=== PATIENT | female | born 1955 | race Caucasian/White ===

== ENCOUNTER → 2020-07-24 08:59 | Outpatient (CLI) | payer BC, SELFPAY ==
--- NOTE | 2020-07-24 | DI.US.S_ITS ---
PROCEDURE: US PERIPH VENOUS LOW EXTREM BI INDICATIONS: EDEMA, UNSPECIFIED TECHNIQUE: Real-time imaging, as well as color and pulse Doppler interrogation, were performed of the deep veins of both legs from the inguinal ligament to the popliteal fossa. COMPARISON: None. FINDINGS: Right: The common femoral, femoral and popliteal veins are normally compressible, and free of intraluminal thrombus. Color and pulse Doppler demonstrate normal phasic intravascular flow. There is normal augmentation response to distal compression maneuver. Left: The common femoral, femoral and popliteal veins are normally compressible, and free of intraluminal thrombus. Color and pulse Doppler demonstrate normal phasic intravascular flow. There is normal augmentation response to distal compression maneuver. IMPRESSION: Negative for deep venous thrombosis. Dictated by: Bigg Kelsey M.D. on 07/24/2020 at 11:34 Approved by: Bigg Kelsey M.D. on 07/24/2020 at 11:35
--- NOTE | 2020-07-24 | DI.RAD.S_ITS ---
PROCEDURE: XR HIP W PEL IF DONE BILAT 2V INDICATIONS: RIGHT HIP PAIN TECHNIQUE: AP pelvis with lateral view(s) of the left and right hip(s). COMPARISON: None. FINDINGS: Bones: No fracture. Mild bilateral hip joint degeneration. Lower lumbar spondylosis and facet arthropathy. Soft tissues: The visualized bowel gas pattern is normal. No suspicious soft tissue calcifications. IMPRESSION: Mild bilateral hip joint degeneration. Dictated by: Anton Giraldo M.D. on 07/24/2020 at 10:56 Approved by: Anton Giraldo M.D. on 07/24/2020 at 10:57
--- NOTE | 2020-07-24 | DI.RAD.S_ITS ---
PROCEDURE: XR CHEST 2V INDICATIONS: PERIPHERAL EDEMA TECHNIQUE: 2 views of the chest were acquired. COMPARISON: [facility], , CHEST 1 VIEW, 12/06/2016, 15:05. FINDINGS: Surgical changes and devices: Surgical staple line projecting in the medial left apex. Surgical clips projecting in the left breast Lungs and pleura: Lungs are clear. No pleural effusions or pneumothorax. Mediastinum: Mediastinal contours are normal. Heart size is normal. Bones and chest wall: No suspicious bony abnormalities. Soft tissues appear unremarkable. IMPRESSION: No acute disease. Dictated by: Anton Giraldo M.D. on 07/24/2020 at 10:57 Approved by: Anton Giraldo M.D. on 07/24/2020 at 10:59
--- NOTE | 2020-07-24 | DI.ECHO.S_ITS ---
[place] +---------+ [facility] +---------+ : : [address] : : : : [id number] : : : : Phone: [phone]+ Echocardiogram Report + + :Name: JUAN CARLOS PARKINSON Study Date: 07/24/2020 Height: 70 in : :[facility] Weight: 240 lb : : Gender: Female BSA: 2.3 m2 : :: 1955 Age: 65 yrs BP: 136/78 mmHg: :Reason For Study: Dyspnea : :Ordering Physician: BETH, : :KATRINA Cartagena Performed By: Germaine Soto : :Referring: KATRINA CAMPOS : + + Interpretation Summary Normal both left and right ventricle size and function. The ejection fraction is 60-65%. Mildly dilated left atrium. No valvular abnormality. Procedure: A two-dimensional transthoracic echocardiogram with color flow and Doppler was performed. The study quality was technically adequate. There is no prior echocardiogram noted for this patient. The patient had occasional PVCs during the exam. The patient was in sinus rhythm with heart rates between 57-72 bpm during the exam. Left Ventricle: The left ventricle is normal in size and wall thickness. The ejection fraction is estimated to be 60-65%. There are no focal wall motion abnormalities. Diastolic parameters suggest probable normal left ventricular diastolic function and normal filling pressures. Right Ventricle: The right ventricle is normal in size and function. Atria: The left atrium is mildly dilated. Right atrial size is normal. There is no Doppler evidence for an interatrial shunt. Mitral Valve: The mitral valve is normal in structure and function. There is trace mitral regurgitation. Aortic Valve: The aortic valve is grossly normal. The aortic valve opens well. There is no aortic valve stenosis. No aortic regurgitation is present. Tricuspid Valve: The tricuspid valve is normal in structure and function. There is trace tricuspid regurgitation. Pulmonary artery pressures cannot be estimated because of the lack of a measurable TR jet velocity but the IVC suggests a CVP of around 3 mmHg. Pulmonic Valve: The pulmonic valve is not well seen, but is grossly normal. There is trace pulmonic regurgitation. Great Vessels: The aortic root is normal size. The dimensions of the ascending aorta are normal. The IVC is of normal diameter and collapses greater than 50% with a sniff. This suggests a low right atrial pressure of 3 mm Hg. Pericardium/ Pleura There is no pericardial effusion. There is no pleural effusion. MMode/2D Measurements & Calculations LVIDd: 5.0 cm LVOT diam: 2.2 cm LVIDs: 3.2 cm Ao root diam: 3.5 cm FS: 37.4 % asc Aorta Diam: 3.1 cm EPSS: 0.44 cm Ao Arch Diam (Prox Trans): 2.8 cm IVSd: 0.94 cm LVPWd: 0.68 cm LV valdez. diameter/BSA (cm/m^2): 2.2 LV sys. diameter/BSA (cm/m^2): 1.4 LA A2 area: 23.3 cm2 RA long axis: 6.0 cm LA A4 area: 25.4 cm2 RA area: 22.4 cm2 LA length (vol): 5.6 cm RA vol: 71.5 ml LA vol: 90.3 ml RA : 31.7 ml/m2 LA vol index: 40.0 ml/m2 IVC diam: 1.2 cm RVD1 (basal): 3.4 cm TAPSE: 2.7 cm Doppler Measurements & Calculations Ao V2 max: 111.1 cm/sec LVOT Max Damon: 102.0 cm/sec Ao V2 mean: 72.4 cm/sec LV V1 max P.2 mmHg Ao max P.9 mmHg LV V1 VTI: 23.1 cm Ao mean P.4 mmHg BONNIE(I,D): 3.6 cm2 Ao V2 VTI: 24.8 cm BONNIE(V,D): 3.6 cm2 sev ratio: 0.93 BONNIE indexed to BSA (cm^2/m^2): 1.6 MV E max damon: 99.3 cm/sec PA V2 max: 89.6 cm/sec MV A max damon: 66.1 cm/sec PA V2 mean: 55.7 cm/sec MV E/A: 1.5 PA mean P.5 mmHg Med Peak E' Damon: 8.0 cm/sec PA pr(Accel): 10.5 mmHg E/E' med: 12.4 Lat Peak E' Damon: 9.3 cm/sec E/E' lat: 10.7 E/e' average: 11.5 MV dec time: 0.22 sec SV(LVOT): 90.3 ml Electronically signed by: Joy Tavarez on Reading Physician:07/24/2020 02:52 PM
== END ==
PROVIDERS: Family Provider Family Medicine; PCP Family Medicine; Referring Provider Family Medicine; Visit Provider Family Medicine
DX: R06.00 Dyspnea, unspecified (principal); R60.9 Edema, unspecified; M25.551 Pain in right hip; M16.0 Bilateral primary osteoarthritis of hip
CPT/HCPCS: 71046; 73521; 93306; 93970

== ENCOUNTER → 2020-08-10 15:20 | Outpatient (CLI) | payer BC, SELFPAY ==
--- NOTE | 2020-08-10 17:54 | DI.NM.S_ITS ---
DATE OF SERVICE: 08/10/2020 PROCEDURE: Exercise stress test. INDICATION: Shortness of breath. EXERCISE STRESS TEST: The patient underwent exercise stress test under the supervision of an attending staff. She walked on Maciej protocol for 4 minutes and 15 seconds, felt fatigue and dizziness. Initial blood pressure 140/80. Peak blood pressure 188/60. The patient achieved 98 percent of target heart rate with maximum heart rate 154 beats per minute. Baseline rhythm was sinus. At peak exercise, there was 1-1.5 mm horizontal, as well as downsloping ST depression, in lead III and aVF, which got resolved in 2.5 minutes in the recovery. Occasional PVCs without any ventricular tachycardia. No chest discomfort. The patient achieved 7 METs of workload. CONCLUSION: Exercise stress test is mildly positive for inducible ischemia. At peak exercise, the patient developed 1-1.5 mm horizontal, as well as downsloping ST depression, in lead III and aVF, which lasted about 2.5 minutes in recovery. Occasional PVCs. Functional aerobic impairment is positive 20 percent. The patient achieved 7 METs of workload. Normal hemodynamic response. Erasmo Calabrese - MISAEL/feli/ana laura doc#: [id number]/job#: [id number] dd: 08/10/2020 17:02:00 dt: 08/10/2020 17:18:00 DICTATING MD/COPIES TO: Laverne Zepeda MD; Sidra Seals MD COPIES MNE: ORALIA;
== END ==
PROVIDERS: Family Provider Family Medicine; PCP Family Medicine; Referring Provider Internal Medicine Cardiovascular Disease; Visit Provider Internal Medicine Cardiovascular Disease
DX: R06.02 Shortness of breath (principal)
CPT/HCPCS: 93017

== ENCOUNTER → 2021-06-20 08:08 | Outpatient (CLI) | payer OTHER, SELFPAY ==
[2021-06-20 20:40] LABS: COVID19 - ORCAS (NP or Nasal) Negative (Negative)
== END ==
PROVIDERS: Family Provider Family Medicine; PCP Family Medicine; Visit Provider Physician Assistant Medical
DX: Z20.822 Contact with and (suspected) exposure to COVID-19 (principal)
CPT/HCPCS: U0003

== ENCOUNTER → 2021-06-29 08:00 | Outpatient (CLI) | payer OTHER, SELFPAY ==
[2021-06-29 18:41] LABS: Add Manual Diff / Slide Review NO; Basophils Absolute Auto 100 /uL (0-100); Basophils Percent Auto 1.3 % (0-2); Eosinophils Absolute Auto 200 /uL (0-450); Eosinophils Percent Auto 4.1 % (2-4); Hematocrit 41.2 % (36-46); Lymphocytes Absolute Auto 2000 /uL (1100-4500); Lymphocytes Percent Auto 36.2 % (25-40); Mean Corpuscular HGB Conc 34.1 % (30-36); Mean Corpuscular Hemoglobin 30.9 PG (26-34); Mean Corpuscular Volume 90.6 fL (80-100); Monocytes Absolute Auto 300 /uL (0-900); Monocytes Percent Auto 5.4 % (3-14); Neutrophils Absolute Auto 2900 /uL (1500-7000); Platelet Count 208 X10^3/uL (150-400); Red Blood Cell Count 4.55 X10^6/uL (4.0-5.2); Red Cell Distribution Width 12.4 % (11.6-14.8); White Blood Cell Count 5.4 X10^3/uL (4.5-11.0)
[2021-06-29 18:47] LABS: Iron 189 ug/dL (37-170)
[2021-06-29 18:51] LABS: Alanine Aminotransferase 23 IU/L (<35); Albumin 4.1 g/dL (3.5-5.0); Albumin Globulin Ratio 1.4 (1.0-2.8); Alkaline Phosphatase 82 U/L (38-126); Aspartate Aminotransferase 28 IU/L (14-36); BUN Creatinine Ratio 24.7 (6-22); Bilirubin Total 0.8 mg/dL (0.2-1.3); Blood Urea Nitrogen 19 mg/dL (7-17); Calcium 10.6 mg/dL (8.4-10.2); Carbon Dioxide 27 mmol/L (22-32); Chloride 105 mmol/L (98-107); Estimated Glomerular Filt Rate > 60.0 mL/min (>60); Glucose 92 mg/dL (80-110); HEMOLYSIS < 15 (0-50); Potassium 4.2 mmol/L (3.4-5.1); Sodium 139 mmol/L (137-145); Total Protein 7.1 g/dL (6.3-8.2)
[2021-06-29 18:56] LABS: Total Iron Binding Capacity 250 ug/dL (265-497)
[2021-06-29 19:04] LABS: Percent Iron Saturation 76 % (15-50)
[2021-06-29 19:24] LABS: Ferritin 83 ng/mL (11-264)
== END ==
PROVIDERS: Family Provider Family Medicine; PCP Family Medicine; Visit Provider Family Medicine
DX: R79.89 Other specified abnormal findings of blood chemistry (principal)
CPT/HCPCS: 80053; 82728; 83540; 83550; 85025

== ENCOUNTER → 2022-01-04 07:59 | Outpatient (CLI) | payer OTHER, SELFPAY ==
[2022-01-04 19:16] LABS: Iron 153 ug/dL (37-170)
[2022-01-04 19:31] LABS: Percent Iron Saturation 64 % (15-50); Total Iron Binding Capacity 240 ug/dL (265-497)
[2022-01-04 19:48] LABS: Ferritin 63 ng/mL (11-264)
== END ==
PROVIDERS: Family Provider Family Medicine; PCP Family Medicine; Visit Provider Internal Medicine Hematology
DX: R79.89 Other specified abnormal findings of blood chemistry (principal)
CPT/HCPCS: 82728; 83540; 83550

== ENCOUNTER → 2022-01-29 08:58 | Outpatient (CLI) | payer OTHER, SELFPAY ==
[2022-01-29 19:41] LABS: COVID19 - ORCAS (NP or Nasal) Negative (Negative)
== END ==
PROVIDERS: Family Provider Family Medicine; PCP Family Medicine; Visit Provider Physician Assistant
DX: Z20.822 Contact with and (suspected) exposure to COVID-19 (principal); Z01.812 Encounter for preprocedural laboratory examination
CPT/HCPCS: U0003

== ENCOUNTER 2022-01-31 09:54 | Day surgery (SDC) | payer OTHER, SELFPAY ==
[2022-01-31 10:45] VITALS: BP 109/64; PULSE 60; RESP 16; TEMP 36.9; O2SAT 98; BMI 35.4
[2022-01-31] MEDS: LACTATED RINGERS 1,000 ML 42 ML IV (11:02)
--- NOTE | 2022-01-31 11:39 | PM.HP.1 ---
History of Present Illness History of Present Illness Date Patient Seen: 01/31/22 Time Patient Seen: 11:39 Chief complaint: SDC Narrative: Erasmo is a 66-year-old woman who is about 15 years out from her last colonoscopy. She believes she had no polyps. No known family history of colon cancer. 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 Scoliosis of thoracic spine Thoracic arthritis Tobacco abuse, in remission Venous stasis Surgical History (Updated 06/29/21 @ 22:00 by Kori Gomes) Anesthesia Collapsed lung (~1978) Status post left breast lumpectomy (~2011) Family & Social History Family History (Updated 06/29/21 @ 22:02 by Kori Gomes) Grandmother Cancer Mother Cancer Diabetes mellitus Father Lung cancer Social History: household members family Tobacco & Substance use: Smoking Status Never smoker alcohol intake current alcohol intake frequency a few times a month Substance Use Type does not use Meds Home Medications and Allergies Home Medications Medication Instructions Recorded Confirmed Type cholecalciferol (vitamin D3) 125 125 mcg PO DAILY 06/27/21 01/31/22 History mcg (5,000 unit) tablet ferrous sulfate 324 mg (65 mg 324 mg PO Q OTHER DAY tab 06/27/21 01/31/22 History iron) tablet,delayed release lorazepam 2 mg tablet 2 mg PO BEDTIME PRN #30 tab 06/28/21 01/31/22 Rx sodium sul 1.479 gram-potas ch See Rx Instructions PO PER PKG DIR 12/17/21 Rx 0.188 gram-magnes sul 0.225 gram #24 tab tablet (Sutab) Allergies Allergy/AdvReac Type Severity Reaction Status Date / Time codeine AdvReac Mild Nausea Verified 01/31/22 10:44 procaine AdvReac Unknown Verified 11/15/21 15:08 Exam Vital Signs (past 8 hours): - 01/31/22 10:45 Temperature 98.5 F Pulse Rate 60 Respiratory Rate 16 Blood Pressure 109/64 Pulse Oximetry 98 Oxygen Delivery Method Room Air Const General: healthy appearing Resp Effort & Inspection: normal respiratory effort Assessment & Plan Assessment and plan (1) Colon cancer screening: Status: Acute Plan 66-year-old woman due for colon cancer screening. We discussed the risks and benefits of colonoscopy and she would like to proceed. COVID-19 COVID-19 status: Negative Result date/Date tested (Pos, Neg/Pending): 01/30/22 Time Spent With Patient Critical Care time: I spent a total of [] minutes of critical care time on this patient's care today; this time is exclusive of procedural time.
[2022-01-31] MEDS: MIDAZOLAM 5 MG/5 ML VIAL 10 MG IV (12:23)
[2022-01-31] MEDS: fentaNYL 250 MCG/5 ML INJ 225 MCG IV (12:23)
--- NOTE | 2022-01-31 12:27 | PM.OP.COLON ---
Operative Date/Time/Diagnoses Date of procedure: 01/31/22 Time of procedure: 12:27 Pre-op diagnosis: Colon cancer screening Post-op diagnosis: same Procedure & Clinicians Study performed: Colonoscopy Same procedure as scheduled: Yes Surgeon: Chidi Sanchez Procedure Notes Procedure in detail: Surgeon: Chidi Sanchez MD Procedure: The patient was brought to the endoscopy suite, placed in left lateral decubitus position. The patient was connected to monitoring devices. A time-out was performed. Sedation was administered. Once the patient was adequately sedated, a digital rectal exam was performed and was normal. The scope was then inserted and advanced to the cecum where the appendiceal orifice was identified and photographed. The scope was then slowly withdrawn over greater than 6 minutes. Mucosa was thoroughly inspected. There were no polyps noted. There were no diverticula or other abnormalities noted. The scope was retroflexed in the rectum. No abnormalities were seen other than some mild internal hemorrhoids. The scope was straightened and removed. The patient was awakened and brought to recovery. Versed: 10 mg Fentanyl: 225 mcg EBL: 0 Findings: Normal colon Scope withdrawal time: 10 Sedation minutes: 41 Post-procedure Recommendations: Colonoscopy in 10 years Disposition: PACU
[2022-01-31 12:30] VITALS: BP 108/47; PULSE 68; RESP 12; TEMP 36; O2SAT 97
[2022-01-31 12:35] VITALS: BP 128/54; PULSE 64; RESP 12; O2SAT 98
[2022-01-31 12:40] VITALS: BP 118/56; PULSE 66; RESP 13; O2SAT 98
[2022-01-31 12:45] VITALS: BP 114/57; PULSE 61; RESP 13; O2SAT 98
[2022-01-31 12:46] VITALS: BP 125/60; PULSE 57; RESP 13; O2SAT 97
== END 2022-01-31 13:08 | disposition home or self-care (01) ==
PROVIDERS: Family Provider Family Medicine; Referring Provider Surgery; Visit Provider Surgery
PROC: 0DJD8ZZ Inspection of Lower Intestinal Tract, Via Natural or Artificial Opening Endoscopic (ICD-10-PCS; CPT 45378; principal; 2022-01-31 11:30)
DX: Z12.11 Encounter for screening for malignant neoplasm of colon (principal); K64.8 Other hemorrhoids
CPT/HCPCS: 45378; 99152; 99153; J2250; J3010

== ENCOUNTER → 2022-04-04 12:49 | Outpatient (CLI) | payer OTHER, SELFPAY ==
[2022-04-04 20:42] LABS: Add Manual Diff / Slide Review NO; Basophils Absolute Auto 100 /uL (0-100); Basophils Percent Auto 1.2 % (0-2); Eosinophils Absolute Auto 300 /uL (0-450); Eosinophils Percent Auto 4.5 % (2-4); Hematocrit 40.4 % (36-46); Hemoglobin 13.5 g/dL (12.0-16.0); Lymphocytes Absolute Auto 1900 /uL (1100-4500); Lymphocytes Percent Auto 29.8 % (25-40); Mean Corpuscular HGB Conc 33.5 % (30-36); Mean Corpuscular Hemoglobin 30.6 PG (26-34); Mean Corpuscular Volume 91.6 fL (80-100); Monocytes Absolute Auto 400 /uL (0-900); Monocytes Percent Auto 5.9 % (3-14); Neutrophils Absolute Auto 3800 /uL (1500-7000); Neutrophils Percent Auto 58.6 % (50-75); Platelet Count 218 X10^3/uL (150-400); Red Blood Cell Count 4.42 X10^6/uL (4.0-5.2); Red Cell Distribution Width 12.9 % (11.6-14.8); White Blood Cell Count 6.5 X10^3/uL (4.5-11.0)
[2022-04-04 20:43] LABS: HEMOLYSIS < 15 (0-50); Iron 99 ug/dL (37-170)
[2022-04-04 20:56] LABS: Percent Iron Saturation 41 % (15-50); Total Iron Binding Capacity 244 ug/dL (265-497); Transferrin 201 mg/dL (206-381)
[2022-04-04 20:59] LABS: Free T4, Direct Thyroxine 0.96 ng/dL (0.78-2.19)
[2022-04-04 21:56] LABS: Alanine Aminotransferase 20 IU/L (<35); Albumin 3.7 g/dL (3.5-5.0); Albumin Globulin Ratio 1.2 (1.0-2.8); Alkaline Phosphatase 109 U/L (38-126); Aspartate Aminotransferase 27 IU/L (14-36); BUN Creatinine Ratio 27.4 (6-22); Bilirubin Total 0.2 mg/dL (0.2-1.3); Blood Urea Nitrogen 20 mg/dL (7-17); Calcium 9.8 mg/dL (8.4-10.2); Carbon Dioxide 27 mmol/L (22-32); Chloride 106 mmol/L (98-107); Estimated Glomerular Filt Rate > 60 mL/min (>60); Glucose 88 mg/dL (80-110); HEMOLYSIS < 15 (0-50); Potassium 4.1 mmol/L (3.4-5.1); Sodium 140 mmol/L (137-145); Total Protein 6.7 g/dL (6.3-8.2)
[2022-04-04 23:57] LABS: Hemoglobin A1C% w Est Avg Glu 5.3 % (4.0-6.0)
[2022-04-05 07:43] LABS: Ferritin 60 ng/mL (11-264)
[2022-04-05 07:57] LABS: Vitamin B12 412 pg/mL (239-931)
== END ==
PROVIDERS: Family Provider Family Medicine; PCP Family Medicine; Visit Provider Family Medicine
DX: R79.89 Other specified abnormal findings of blood chemistry (principal); G62.9 Polyneuropathy, unspecified; R53.83 Other fatigue
CPT/HCPCS: 80053; 82607; 82728; 83036; 83540; 83550; 84439; 85025

== ENCOUNTER → 2022-07-22 13:31 | Outpatient (CLI) | payer MEDICARE, SELFPAY | PROVIDERS: Family Provider Family Medicine; PCP Family Medicine; Visit Provider Family Medicine | DX: J02.9 Acute pharyngitis, unspecified (principal) | CPT/HCPCS: 87070 ==

== ENCOUNTER → 2023-02-11 14:06 | Outpatient (CLI) | payer MEDICARE, SELFPAY ==
[2023-02-11 19:54] LABS: Add Manual Diff / Slide Review NO; Basophils Absolute Auto 100 /uL (0-100); Basophils Percent Auto 0.8 % (0-2); Eosinophils Absolute Auto 300 /uL (0-450); Eosinophils Percent Auto 3.9 % (2-4); HEMOLYSIS < 15 (0-50); Hematocrit 41.1 % (36-46); Hemoglobin 13.9 g/dL (12.0-16.0); Iron 159 ug/dL (37-170); Lymphocytes Absolute Auto 2000 /uL (1100-4500); Lymphocytes Percent Auto 25.8 % (25-40); Mean Corpuscular HGB Conc 33.9 % (30-36); Mean Corpuscular Volume 91.5 fL (80-100); Monocytes Absolute Auto 400 /uL (0-900); Monocytes Percent Auto 5.1 % (3-14); Neutrophils Absolute Auto 4900 /uL (1500-7000); Neutrophils Percent Auto 64.4 % (50-75); Platelet Count 224 X10^3/uL (150-400); Red Blood Cell Count 4.49 X10^6/uL (4.0-5.2); Red Cell Distribution Width 12.7 % (11.6-14.8); White Blood Cell Count 7.7 X10^3/uL (4.5-11.0)
[2023-02-11 19:57] LABS: Alanine Aminotransferase 22 IU/L (<35); Albumin 3.9 g/dL (3.5-5.0); Albumin Globulin Ratio 1.3 (1.0-2.8); Alkaline Phosphatase 95 U/L (38-126); Aspartate Aminotransferase 26 IU/L (14-36); BUN Creatinine Ratio 22.8 (6-22); Bilirubin Total 0.4 mg/dL (0.2-1.3); Blood Urea Nitrogen 18 mg/dL (7-17); Calcium 10.2 mg/dL (8.4-10.2); Carbon Dioxide 29 mmol/L (22-32); Chloride 105 mmol/L (98-107); Estimated Glomerular Filt Rate > 60 mL/min (>60); Globulin 3.1 g/dL (1.7-4.1); Glucose 89 mg/dL (80-110); HEMOLYSIS < 15 (0-50); Potassium 4.5 mmol/L (3.4-5.1); Sodium 138 mmol/L (137-145)
[2023-02-11 20:06] LABS: Percent Iron Saturation 61 % (15-50); Total Iron Binding Capacity 260 ug/dL (265-497); Transferrin 191 mg/dL (206-381)
[2023-02-11 20:24] LABS: Thyroid Stimulating Hormone 1.12 uIU/mL (0.47-4.68)
[2023-02-11 20:30] LABS: Ferritin 62 ng/mL (11-264)
[2023-02-11 21:01] LABS: Folate 12.4 ng/mL (2.76-20.0)
[2023-02-17 15:00] LABS: Vitamin B12 Reflex MMA if <400 330 pg/mL (239-931)
[2023-02-20 10:55] LABS: Methylmalonic Acid,Serum 237 nmol/L (0-378)
== END ==
PROVIDERS: Family Provider Family Medicine; PCP Family Medicine; Visit Provider Family Medicine
DX: R60.0 Localized edema (principal); M25.561 Pain in right knee; R41.3 Other amnesia; R53.83 Other fatigue; R42 Dizziness and giddiness; R79.89 Other specified abnormal findings of blood chemistry; G89.29 Other chronic pain
CPT/HCPCS: 80053; 82607; 82728; 82746; 83540; 83550; 83921; 84443; 85025

== ENCOUNTER 2023-04-06 14:07 | Emergency (ER) | payer MEDICARE, SELFPAY ==
[2023-04-06 14:11] VITALS: BP 144/65; PULSE 66; RESP 16; TEMP 36.6; O2SAT 98; BMI 34.0
--- NOTE | 2023-04-06 14:15 | DI.US.S_ITS ---
PROCEDURE: US PERIPH VENOUS LOW EXTREM RT INDICATIONS: DVT r/o, hx DVT TECHNIQUE: Real-time imaging, as well as color and pulse Doppler interrogation, were performed of the lower extremity deep veins from the inguinal ligament to the popliteal fossa. COMPARISON: None. FINDINGS: The common femoral, femoral and popliteal veins are normally compressible, and free of intraluminal thrombus. Color and pulse Doppler demonstrate normal phasic intraluminal flow. There is normal augmentation response to distal compression maneuver. IMPRESSION: Negative right lower extremity duplex venous ultrasound for DVT. Dictated by: Hung Kelley M.D. on 04/06/2023 at 15:07 Approved by: Hung Kelley M.D. on 04/06/2023 at 15:07
--- NOTE | 2023-04-06 14:16 | ED.EXTPRO ---
HPI - Extremity Problem <TARIQ Floyd - Last Filed: 04/06/23 15:38> General Chief complaint: Extremity Problem,Nontraumatic Stated complaint: RT KNEE PAIN/WANTS US Time Seen by Provider: 04/06/23 14:15 Source: patient Mode of arrival: Family Vehicle History of Present Illness HPI Narrative: This is a 67-year-old female presents to emergency department complaining of swelling behind her right knee, pain with bearing weight to her right knee, states she is had a history of a DVT and is concerned about possible DVT. She reports history of venous insufficiency and poor venous return with bilateral lower extremity edema which is chronic in nature. She states that she has had prescription Lasix in the past but states it is only a Band-Aid as her lower extremity valves are insufficient at returning the blood. She is not anticoagulated, denies any redness or tenderness to her lower leg. History of osteoarthritis to bilateral knees. She denies shortness of breath, denies any acute changes, has not had recent travel or immobility, denies any recent surgery. Related Data Home Medications Medication Instructions Recorded Confirmed cholecalciferol (vitamin D3) 125 125 mcg PO DAILY PRN 05/02/22 02/20/23 mcg (5,000 unit) tablet lorazepam 2 mg tablet 2 mg PO BEDTIME PRN sleep 05/02/22 02/20/23 Previous Rx's Medication Instructions Recorded diclofenac sodium 1 % topical gel 4 g topical QID #100 grams 04/06/23 hydrocodone 5 mg-acetaminophen 325 1 tab PO Q6H PRN pain #10 tabs 04/06/23 mg tablet meloxicam 7.5 mg tablet 7.5 mg PO DAILY PRN arthritis pain 04/06/23 #30 tabs Allergies Allergy/AdvReac Type Severity Reaction Status Date / Time codeine AdvReac Mild Nausea Verified 04/06/23 14:16 procaine AdvReac Unknown Verified 04/06/23 14:16 Review of Systems <TARIQ Floyd - Last Filed: 04/06/23 15:38> Review of Systems ROS Unobtainable: All systems reviewed & are unremarkable except as noted in HPI and below Patient History <TARIQ Floyd - Last Filed: 04/06/23 15:38> Medical History Arthritis of both hips Arthritis, lumbar spine Breast cancer, left (~2011) Cervical spine arthritis Chronic deep vein thrombosis (DVT) of calf muscle vein of right lower extremity LICONA (dyspnea on exertion) Edema of both legs Generalized anxiety disorder H/O gastric ulcer High serum transferrin saturation History of pneumothorax LAE (left atrial enlargement) Major depressive disorder in full remission Scoliosis of thoracic spine Thoracic arthritis Tobacco abuse, in remission Venous stasis Surgical History Anesthesia Collapsed lung (~1978) Status post left breast lumpectomy (~2011) Family History Grandmother Cancer Mother Cancer Diabetes mellitus Father Lung cancer Social History household members: family Smoking Status: Never smoker alcohol intake: current additional social history: had spontaneous pneumothorax at 22 yo (dad had this also) 33yrs ago --- quit smoking FHX: dad had: COPD and lung cancer - tobacco use Smoking Status: Never smoker alcohol intake frequency: a few times a month Substance Use Type: does not use Exam <TARIQ Floyd - Last Filed: 04/06/23 15:38> Narrative Exam Narrative: Reviewed vitals signs and nursing notes. General: Pleasant, sitting upright, in no acute distress, well groomed, afebrile HEENT: symmetrical facial expressions, moist mucous membranes, neck is supple CV: regular rate and rhythm, S1-S2, warm extremities Respiratory: normal work of breathing, without tachypnea or hypoxia. GI: abdomen soft, nondistended, without CVA tenderness bilaterally. MSK: moves all extremities, no weakness, normal tone, ambulatory without deficit, bilateral lower extremities with 2+ edema, non-pitting, no erythema, non-tender to palpation, equal and consistent in comparison to the left lower leg, moderate least Westfall cyst is palpable to the posterior of the right knee, there is no discoloration, is nontender to palpation, no suprapatellar effusion to knees bilaterally, patient complains of pain while bearing weight but has full mobility without deficit, sensation is intact distally to bilateral feet and is comparable. Skin: brisk capillary refill, without rash or wound Neuro: clear speech and normal cognition, A&O x3, GCS 15, no focal motor or sensation deficits Initial Vital Signs Initial Vital Signs: Vital Signs Temperature 97.9 F 04/06/23 14:11 Pulse Rate 66 04/06/23 14:11 Respiratory Rate 16 04/06/23 14:11 Blood Pressure 144/65 H 04/06/23 14:11 Pulse Oximetry 98 04/06/23 14:11 Oxygen Delivery Method Room Air 04/06/23 14:11 <Shabbir Farris DO - Last Filed: 04/06/23 16:55> Initial Vital Signs Initial Vital Signs: Vital Signs Temperature 97.9 F 04/06/23 14:11 Pulse Rate 66 04/06/23 14:11 Respiratory Rate 16 04/06/23 14:11 Blood Pressure 144/65 H 04/06/23 14:11 Pulse Oximetry 98 04/06/23 14:11 Oxygen Delivery Method Room Air 04/06/23 14:11 Scores <TARIQ Floyd - Last Filed: 04/06/23 15:38> Darrick' Criteria for DVT Active Cancer (Treatment within 6 months): No Bedridden recently >3 days or major surgery within 4 weeks: No Calf Swelling >3cm compared to other leg: No Collateral (nonvericose) superficial veins present: No Entire leg swollen: Yes Localized tenderness along the deep vein system: No Pitting edema, confined to symtomatic leg: No Paralysis, paresis, or recent plaster immobilization of ext: No Previously documented DVT: Yes Alternative dx to DVT as likely or more likely: Yes Wells' criteria for DVT: 0 <Shabbir Farirs DO - Last Filed: 04/06/23 16:55> Wells' Criteria for DVT Wells' criteria for DVT: 0 Course <TARIQ Floyd - Last Filed: 04/06/23 15:38> Orders Ordered: ED Orders 04/06/23 14:15 US periph venous low extrem rt Stat 04/06/23 14:22 XR knee RT 3V Stat 04/06/23 14:26 CBC Auto Diff [Complete Blood Count AUTO DIFF] Stat D Dimer Stat Vital Signs Vital signs: Vital Signs - 8 hr 04/06/23 14:11 04/06/23 15:52 Temperature 97.9 F Pulse Rate 66 62 Respiratory Rate 16 18 Blood Pressure 144/65 H 141/65 H Pulse Oximetry 98 97 Oxygen Delivery Method Room Air Room Air <Shabbir Farris DO - Last Filed: 04/06/23 16:55> Orders Ordered: ED Orders 04/06/23 14:15 US periph venous low extrem rt Stat 04/06/23 14:22 XR knee RT 3V Stat 04/06/23 14:26 CBC Auto Diff [Complete Blood Count AUTO DIFF] Stat D Dimer Stat Vital Signs Vital signs: Vital Signs - 8 hr 04/06/23 14:11 04/06/23 15:52 Temperature 97.9 F Pulse Rate 66 62 Respiratory Rate 16 18 Blood Pressure 144/65 H 141/65 H Pulse Oximetry 98 97 Oxygen Delivery Method Room Air Room Air MDM - Extremity (Nontraumatic) <EPHRAIM FloydP - Last Filed: 04/06/23 15:38> Lab Data 04/06/23 14:26 Labs: Lab Results 04/06/23 04/06/23 Range/Units 14:26 14:26 WBC 7.2 (4.5-11.0) X10^3/uL RBC 4.48 (4.0-5.2) X10^6/uL Hgb 14.0 (12.0-16.0) g/dL Hct 40.9 (36-46) % MCV 91.3 (80-100) fL MCH 31.2 (26-34) PG MCHC 34.2 (30-36) % RDW 13.0 (11.6-14.8) % Plt Count 200 (150-400) X10^3/uL Neut % (Auto) 68.7 (50-75) % Lymph % (Auto) 16.4 L (25-40) % [place] % (Auto) 4.5 (3-14) % Eos % (Auto) 5.7 H (2-4) % Baso % (Auto) 4.7 H (0-2) % Neut # (Auto) 5000 (4600-3474) /uL Lymph # (Auto) 1200 (3947-9121) /uL [place] # (Auto) 300 (0-900) /uL Eos # (Auto) 400 (0-450) /uL Baso # (Auto) 300 H (0-100) /uL D-Dimer 636 H (<500) ng/ml Imaging Data US - DVT: Radiologist's Impression: [address] [address] Ultrasound Report Signed Patient: Erasmo Calabrese MR#: [id number] : 1955 Acct:[id number] Age/Sex: 67 / F Date of Service: 04/06/23 Loc: ED Accession Number: [id number] ?? Procedure: US periph venous low extrem rt Ordering Provider: Jacque Metz PROCEDURE:? US PERIPH VENOUS LOW EXTREM RT ? INDICATIONS:? DVT r/o, hx DVT ? TECHNIQUE:? Real-time imaging, as well as color and pulse Doppler interrogation, were performed of the lower extremity deep veins from the inguinal ligament to the popliteal fossa.? ? COMPARISON:? None. ? FINDINGS:? The common femoral, femoral and popliteal veins are normally compressible, and free of intraluminal thrombus.? Color and pulse Doppler demonstrate normal phasic intraluminal flow.? There is normal augmentation response to distal compression maneuver. ? ? IMPRESSION:? Negative right lower extremity duplex venous ultrasound for DVT. ? ? Dictated by: Hung Kelley M.D. on 04/06/2023 at 15:07 ? ? Approved by: Hung Kelley M.D. on 04/06/2023 at 15:07 ? MDM Narrative Medical decision making narrative: Chief Complaint: swelling behind right knee Multiple etiologies for patient's complaint considered including, but not limited to: DVT, cellulitis, Westfall cyst, knee effusion I have independently reviewed the patient's vital signs and nursing notes as well as prior records if available. Patient's well's DVT is 0, will order D-dimer and CBC, x-ray of right knee to evaluate for effusion versus osteoarthritis versus bony abnormality and ultrasound venous duplex of right lower extremity to evaluate for DVT. She is not short of breath, without recent surgical procedure, denies palpitations, or any other symptoms, denies weakness or sensation changes, complains of pain to her right knee while bearing weight. Has a history of bilateral knee osteoarthritis and chronic pain of bilateral lower extremities. She also has a history of venous insufficiency and has chronic edema to bilateral lower extremities. On exam today they are equal in size, without discoloration or skin changes. She is nontender along deep venous system. Patient's last knee x-ray from 10/04/2022 shows moderate tricompartmental osteoarthritis without a significant joint effusion. Today her right knee x-ray shows moderate tricompartmental osteoarthritis Patient's D-dimer is elevated at 636, her age adjusted D-dimer for DVT is not elevated as the cut off for her age is 650 Ultrasound DVT is negative for acute DVT. Patient is encouraged to follow-up at [facility] for ongoing care for her knees or for further workup if she were to pursue total knee replacement. For pain I prescribed for her meloxicam, diclofenac gel, and hydrocodone, encouraged icing, prevention of overuse, rest, elevation of her lower extremities. Social considerations that may affect disposition: none Questions are addressed and there is agreement with the plan and for follow-up. I consulted with the ED attending physician Dr. Farris as needed for higher level of care considerations and they were available for discussion and recommendations regarding plan of care and diagnostic testing. Patient is appropriate for outpatient management. <Shabbir Farris, DO - Last Filed: 04/06/23 16:55> Lab Data Labs: Lab Results 04/06/23 04/06/23 Range/Units 14:26 14:26 WBC 7.2 (4.5-11.0) X10^3/uL RBC 4.48 (4.0-5.2) X10^6/uL Hgb 14.0 (12.0-16.0) g/dL Hct 40.9 (36-46) % MCV 91.3 (80-100) fL MCH 31.2 (26-34) PG MCHC 34.2 (30-36) % RDW 13.0 (11.6-14.8) % Plt Count 200 (150-400) X10^3/uL Neut % (Auto) 68.7 (50-75) % Lymph % (Auto) 16.4 L (25-40) % [place] % (Auto) 4.5 (3-14) % Eos % (Auto) 5.7 H (2-4) % Baso % (Auto) 4.7 H (0-2) % Neut # (Auto) 5000 (3149-9198) /uL Lymph # (Auto) 1200 (1908-3467) /uL [place] # (Auto) 300 (0-900) /uL Eos # (Auto) 400 (0-450) /uL Baso # (Auto) 300 H (0-100) /uL D-Dimer 636 H (<500) ng/ml Discharge Plan Departure Patient Disposition: Home Clinical Impression: Edema of both lower legs, Encounter for assessment for deep vein thrombosis (DVT) Osteoarthritis of knees, bilateral Qualifiers: Osteoarthritis type: primary Qualified Code(s): M17.0 - Bilateral primary osteoarthritis of knee Westfall cyst Qualifiers: Laterality: right Qualified Code(s): M71.21 - Synovial cyst of popliteal space [Westfall], right knee Instructions: Osteoarthritis, Westfall Cyst, DI for Edema Due to Venous Stasis, Certain Exercises May Help People with Knee Osteoarthritis Activity Restrictions/Additional Instructions: *You have been diagnosed with history osteoarthritis of both of your knees, it is still evident on your x-ray today, moderate to severe tricompartmental osteoarthritis. Sometimes when you have a flare of this from activity there is swelling within the joint and the swelling pushes out surrounding tissues including a Westfall cyst in makes this feel more prominent. For your knees, please try topical Voltaren gel, naproxen or other anti-inflammatories can be helpful if your stomach tolerates them. Okay to use a pain pill as needed, sometimes it is the only way that arthritis will feel better is with pain control. Icing can be helpful and try to avoid overuse. I have given you meloxicam which is an NSAID but works well on arthritis and is more tolerable in the stomach, take it once daily as needed with food and water. I have given you hydrocodone for severe pain, please use the diclofenac gel a few times a day to the whole knee to see if this is helpful. Please schedule follow-up at [facility] if you would like to workup your knee pain. I have forwarded the note to them and they have access to your previous imaging. *What to do: *Please continue to take your regular medications as directed. [ ] New medication prescriptions sent to your pharmacy: [ ] [ x] New medication written as a paper prescription [ ] No new medications given *Please call and schedule follow up with your primary care provider in 2-3 days, at least for an update. Let them know you were seen in the Emergency Department for the above problem. We will electronically transmit a record of today's note if your PCP or specialist is in our system. *If you do not have a primary care provider please contact [phone] to establish care with one of the [facility] primary care providers. *Return to the Emergency Department for worsening symptoms, inability to keep liquids down, fever greater than 101F, chills, or other concerning symptom. Prescriptions: New hydrocodone-acetaminophen 5-325 mg tablet 1 tab PO Q6H PRN (Reason: pain) Qty: 10 0RF diclofenac sodium 1 % gel 4 g topical QID Qty: 100 3RF Rx Instructions: apply to area of pain up to 4 times a day meloxicam 7.5 mg tablet 7.5 mg PO DAILY PRN (Reason: arthritis pain) Qty: 30 1RF Rx Instructions: take with food and water No Action lorazepam 2 mg tablet 2 mg PO BEDTIME PRN (Reason: sleep) cholecalciferol (vitamin D3) 125 mcg (5,000 unit) tablet 125 mcg PO DAILY PRN Referrals: [facility] [Provider Group] Jacque Walters MD [Primary Care Provider] - Stand Alone Forms: Patient Portal/API <Shabbir Farris DO - Last Filed: 04/06/23 16:55> Cosign ED Attending Priya Attestation: I was immediately available in the department for consultation. Documentation has been reviewed. I agree with assessment and plan.
--- NOTE | 2023-04-06 14:22 | DI.RAD.S_ITS ---
PROCEDURE: XR KNEE RT 3V INDICATIONS: Westfall cyst versus effusion versus osteoarthritis TECHNIQUE: 3 views of the knee were acquired. COMPARISON: [facility] ([place]), CR, XR KNEE RT 3V, 10/04/2022, 13:50. FINDINGS: Bones: No fractures or dislocations. Tricompartment bulky osteophytes. Severe patellofemoral joint space loss. At least moderate medial compartment joint space loss. Findings have progressed since the previous study. Soft tissues: No joint effusion. No suspicious soft tissue calcifications. IMPRESSION: Progressive tricompartment osteoarthritis. Dictated by: Hung Kelley M.D. on 04/06/2023 at 18:24 Approved by: Hung Kelley M.D. on 04/06/2023 at 18:26
[2023-04-06 14:35] LABS: Add Manual Diff / Slide Review NO; Basophils Absolute Auto 300 /uL (0-100); Basophils Percent Auto 4.7 % (0-2); Eosinophils Absolute Auto 400 /uL (0-450); Eosinophils Percent Auto 5.7 % (2-4); Hematocrit 40.9 % (36-46); Lymphocytes Absolute Auto 1200 /uL (1100-4500); Lymphocytes Percent Auto 16.4 % (25-40); Mean Corpuscular HGB Conc 34.2 % (30-36); Mean Corpuscular Hemoglobin 31.2 PG (26-34); Mean Corpuscular Volume 91.3 fL (80-100); Monocytes Absolute Auto 300 /uL (0-900); Monocytes Percent Auto 4.5 % (3-14); Neutrophils Absolute Auto 5000 /uL (1500-7000); Neutrophils Percent Auto 68.7 % (50-75); Platelet Count 200 X10^3/uL (150-400); Red Blood Cell Count 4.48 X10^6/uL (4.0-5.2); White Blood Cell Count 7.2 X10^3/uL (4.5-11.0)
[2023-04-06 14:51] LABS: D Dimer 636 ng/ml (<500)
[2023-04-06 15:52] VITALS: BP 141/65; PULSE 62; RESP 18; O2SAT 97
--- NOTE | 2023-04-06 15:55 | PC.NURSE ---
Gave patient and son Mika extensive teaching on medications and plan of care once they leave the ED regarding follow up. Both patient and son acknowledged teaching and plan of care and felt comfortable with the education.
== END 2023-04-06 15:55 | disposition home or self-care (01) ==
PROVIDERS: Emergency Provider Nurse Practitioner Critical Care Medicine; Family Provider Family Medicine; PCP Family Medicine
DX: M71.21 Synovial cyst of popliteal space [Baker], right knee (principal); R60.0 Localized edema; M17.0 Bilateral primary osteoarthritis of knee
CPT/HCPCS: 36415; 73562; 85025; 85379; 93971; 99283

== ENCOUNTER → 2023-04-18 | Outpatient (CLI) | payer MEDICARE, SELFPAY ==
--- NOTE | 2023-04-18 20:37 | DI.NM.S_ITS ---
DATE OF SERVICE: 04/18/2023 PROCEDURE PERFORMED: Exercise treadmill stress and rest myocardial perfusion imaging with gating to assess ejection fraction and regional wall motion. ORDERING PROVIDER: Dr. Jacque Walters. INDICATIONS: The patient is a 67-year-old female with dizziness and fatigue with a previous abnormal exercise treadmill study. CARDIAC STRESS: The patient was able to exercise for 4 minutes, 20 seconds on a standard Maciej protocol suggesting moderate-severely reduced exercise capacity with an IRVIN of +30%, achieving 4.5 METs. She had a somewhat accelerated heart rate response to exercise, achieving a maximum heart rate of 146 BPM (94% of her predicted maximum) and a mild hypertensive blood pressure response with a resting blood pressure of 128/70, increasing to a maximum of 210/80. She had no chest discomfort or other anginal symptoms. Her resting ECG shows subtle ST-segment abnormalities in the inferior leads, which become accentuated with stress but remain nonsignificant. She had occasional isolated PVCs at high workloads, but no complex ventricular ectopy. At 3 minutes, 15 seconds of exercise at a heart rate of 141 BPM, 29.1 mCi of technetium-99m Myoview was injected and she was imaged 15 minutes later using a quantitated gated SPECT acquisition protocol. Earlier in the day, while at rest, she had been injected with 11.6 mCi of technetium-99m Myoview and was imaged 20 minutes later, again using a quantitated gated SPECT acquisition protocol. FINDINGS: 1. Raw data. There is fair myocardial tracer uptake. The lung/heart ratio is normal at 0.30 with a normal TID ratio of 1.02. 2. Quantitated gated SPECT: Post-stress ejection fraction is estimated at 78% without any focal wall motion abnormality, and specifically the distal anterior wall and apex have brisk, normal contractility. The resting ejection fraction is 68% with a normal resting end-diastolic volume of 101 mL. 3. Myocardial perfusion imaging: Post-stress supine images show a mild perfusion defect in the distal anterior wall extending to the apex in a pattern consistent with breast attenuation artifact, supported by its near-complete resolution on the prone images, although a very subtle defect remains present. The resting images show a similar perfusion defect, although with slight improvement, but no other perfusion defects. IMPRESSION: 1. Probable normal myocardial perfusion study. 2. Predominantly fixed but slightly reversible distal anterior wall and apical perfusion defect that nearly completely resolves on prone imaging, most likely representing breast attenuation artifact given her body habitus. While a small nontransural infarct with slight periinfarct ischemia cannot be entirely excluded, it is unlikely given the absence of a wall motion abnormality. Clinical correlation is suggested. 3. Normal left ventricular size and systolic function without any focal wall motion abnormality. 4. Moderate-severely reduced exercise capacity with an accelerated heart rate response to exercise and a mild hypertensive blood pressure response to exercise, suggesting reduced cardiovascular fitness. She had no angina or ECG evidence of ischemia and only occasional isolated PVCs but no complex ventricular ectopy. Erasmo Calabrese - /feli/ doc#: [id number]/job#: [id number] dd: 04/18/2023 16:25:00 dt: 04/18/2023 20:15:00 DICTATING MD/COPIES TO: Casey Del Angel MD; Dr. Jacque Walters COPIES MNE: DYLAN; ; Dr. Jacque Walters
== END ==
LOC: NUCM 09:33
PROVIDERS: Family Provider Family Medicine; PCP Family Medicine; Referring Provider Family Medicine; Visit Provider Family Medicine
DX: R06.09 Other forms of dyspnea (principal); R94.39 Abnormal result of other cardiovascular function study; R42 Dizziness and giddiness; R53.83 Other fatigue
CPT/HCPCS: 78452; 93017; A9502

== ENCOUNTER → 2023-12-09 08:28 | Outpatient (CLI) | payer MEDICARE, SELFPAY ==
[2023-12-09 19:25] LABS: Add Manual Diff / Slide Review NO; Basophils Absolute Auto 100 /uL (0-100); Basophils Percent Auto 1.2 % (0-2); Eosinophils Absolute Auto 300 /uL (0-450); Eosinophils Percent Auto 5.7 % (2-4); Hemoglobin 13.5 g/dL (12.0-16.0); Lymphocytes Absolute Auto 2000 /uL (1100-4500); Lymphocytes Percent Auto 36.1 % (25-40); Mean Corpuscular HGB Conc 33.8 % (30-36); Mean Corpuscular Volume 91.7 fL (80-100); Monocytes Absolute Auto 300 /uL (0-900); Monocytes Percent Auto 5.7 % (3-14); Neutrophils Absolute Auto 2800 /uL (1500-7000); Neutrophils Percent Auto 51.3 % (50-75); Platelet Count 280 X10^3/uL (150-400); Red Blood Cell Count 4.37 X10^6/uL (4.0-5.2); Red Cell Distribution Width 12.8 % (11.6-14.8); White Blood Cell Count 5.5 X10^3/uL (4.5-11.0)
[2023-12-09 19:26] LABS: Alanine Aminotransferase 16 IU/L (<35); Albumin 3.5 g/dL (3.5-5.0); Albumin Globulin Ratio 1.1 (1.0-2.8); Alkaline Phosphatase 90 U/L (38-126); Aspartate Aminotransferase 23 IU/L (14-36); BUN Creatinine Ratio 27.9 (6-22); Bilirubin Total 0.6 mg/dL (0.2-1.3); Blood Urea Nitrogen 19 mg/dL (7-17); Calcium 10.1 mg/dL (8.4-10.2); Carbon Dioxide 26 mmol/L (22-32); Chloride 110 mmol/L (98-107); Estimated Glomerular Filt Rate > 60 mL/min (>60); Globulin 3.3 g/dL (1.7-4.1); Glucose 92 mg/dL (80-110); HEMOLYSIS < 15 (0-50); Potassium 4.3 mmol/L (3.4-5.1); Sodium 139 mmol/L (137-145); Total Protein 6.8 g/dL (6.3-8.2)
[2023-12-09 19:38] LABS: HEMOLYSIS < 15 (0-50); Iron 119 ug/dL (37-170)
[2023-12-09 19:51] LABS: Percent Iron Saturation 48 % (15-50); Total Iron Binding Capacity 250 ug/dL (265-497); Transferrin 202 mg/dL (206-381)
[2023-12-09 19:58] LABS: Ferritin 33 ng/mL (11-264)
== END ==
PROVIDERS: Family Provider Family Medicine; PCP Family Medicine; Visit Provider Family Medicine
DX: R79.89 Other specified abnormal findings of blood chemistry (principal); R53.83 Other fatigue; R06.02 Shortness of breath; Z72.820 Sleep deprivation
CPT/HCPCS: 80053; 82728; 83540; 83550; 85025

== ENCOUNTER → 2023-12-29 08:42 | Outpatient (CLI) | payer MEDICARE, MEDICAID, SELFPAY ==
--- NOTE | 2023-12-29 09:30 | DI.ECHO.S_ITS ---
[facility] : : [address] : [place] : : [id number] : : Phone: [phone] Echocardiogram Report + + :Name: JUAN CARLOS PARKINSON Study Date: 12/29/2023 Height: 69 in : :[facility] ReadingLocation: Weight: 225 lb : : Gender: Female BSA: 2.2 m2 : :: 1955 Age: 68 yrs BP: 160/53 mmHg: :Reason For Study: SHORTNESS OF BREATH, EDEMA : :Ordering Physician: PELON, : :KAYLA Performed By: Alvarez Dunham : :Referring: KAYLA BIRD : + + Interpretation Summary Normal left ventricle size with ejection fraction 60-65%. No valvular abnormality. Comparison is made with the echocardiogram of 07/24/2020, no significant change. Procedure: A two-dimensional transthoracic echocardiogram with color flow and Doppler was performed. The study quality was technically adequate. Comparison is made with the echocardiogram of 07/24/2020. The patient was in normal sinus rhythm during the exam. The heart rate ranged between 58-65 bpm during the study. Left Ventricle: The left ventricle is normal in size and wall thickness. The ejection fraction is estimated to be 60-65%. There are no focal wall motion abnormalities. Diastolic parameters suggest probable normal left ventricular diastolic function and normal filling pressures. Right Ventricle: The right ventricle is normal in size and function. Atria: The left atrial size is normal. Right atrial size is normal. The interatrial septum grossly appears intact with no obvious evidence for an atrial septal defect. Mitral Valve: The mitral valve is normal in structure and function. There is no mitral valve stenosis. There is no mitral regurgitation noted. Aortic Valve: The aortic valve is grossly normal. There is no aortic valve stenosis. No aortic regurgitation is present. Tricuspid Valve: The tricuspid valve is normal in structure and function. There is no tricuspid stenosis. No tricuspid regurgitation. Pulmonic Valve: The pulmonic valve is not well visualized. There is no pulmonic valvular stenosis. There is no pulmonic valvular regurgitation. Great Vessels: The aortic root is normal size. The dimensions of the ascending aorta are normal. The inferior vena cava appeared normal. The IVC is of normal diameter and collapses greater than 50% with a sniff. This suggests a low right atrial pressure of 3 mm Hg. Pericardium/ Pleura There is no pericardial effusion. There is no pleural effusion. MMode/2D Measurements & Calculations LVIDd: 4.2 cm LVOT diam: 2.0 cm LVIDs: 2.8 cm Ao root diam: 3.0 cm FS: 34.5 % asc Aorta Diam: 2.9 cm IVSd: 1.0 cm Ao Arch Diam (Prox Trans): 2.1 cm LVPWd: 1.2 cm LV valdez. diameter/BSA (cm/m^2): 1.9 LV sys. diameter/BSA (cm/m^2): 1.3 LA A2 area: 18.7 cm2 RA long axis: 4.9 cm LA A4 area: 24.0 cm2 RA area: 15.8 cm2 LA length (vol): 5.5 cm RA vol: 43.2 ml LA vol: 68.8 ml RA : 19.9 ml/m2 LA vol index: 31.7 ml/m2 IVC diam: 1.6 cm RVD1 (basal): 3.6 cm RVD2 (mid): 2.8 cm TAPSE: 2.7 cm Doppler Measurements & Calculations Ao V2 max: 124.5 cm/sec LVOT Max Damon: 100.6 cm/sec Ao V2 mean: 89.6 cm/sec LV V1 max P.0 mmHg Ao max P.2 mmHg LV V1 VTI: 27.5 cm Ao mean P.6 mmHg BONNIE(I,D): 2.9 cm2 Ao V2 VTI: 30.0 cm BONNIE(V,D): 2.6 cm2 sev ratio: 0.92 BONNIE indexed to BSA (cm^2/m^2): 1.3 MV E max damon: 94.4 cm/sec PA V2 max: 103.8 cm/sec MV A max damon: 84.1 cm/sec PA V2 mean: 68.1 cm/sec MV E/A: 1.1 PA mean P.1 mmHg Med Peak E' Damon: 8.7 cm/sec PA pr(Accel): 24.2 mmHg E/E' med: 10.8 Lat Peak E' Damon: 9.1 cm/sec E/E' lat: 10.4 E/e' average: 10.6 MV dec time: 0.19 sec [facility] 87.1 ml Electronically signed by: Joy Tavarez on Reading Physician:12/29/2023 02:15 PM
== END ==
PROVIDERS: Family Provider Family Medicine; PCP Family Medicine; Referring Provider Family Medicine; Visit Provider Family Medicine
DX: R06.02 Shortness of breath (principal); R60.0 Localized edema; J98.8 Other specified respiratory disorders
CPT/HCPCS: 93306; 94060; 94618; 94726; 94729

== ENCOUNTER → 2023-12-29 08:47 | Outpatient (CLI) | payer MEDICARE, MEDICAID, SELFPAY | PROVIDERS: Family Provider Family Medicine; PCP Family Medicine; Referring Provider Family Medicine; Visit Provider Family Medicine | DX: R06.02 Shortness of breath (principal); J98.8 Other specified respiratory disorders | CPT/HCPCS: 94060; 94618; 94726; 94729 ==

== ENCOUNTER → 2024-05-20 09:28 | Outpatient (CLI) | payer MEDICARE, SELFPAY ==
--- NOTE | 2024-05-20 09:30 | DI.US.S_ITS ---
PROCEDURE: US ABDOMEN LIMITED INDICATIONS: HIGH TRANSFERRIN SATURATION AND LEG SWELLING. EVALUATE LIVER TECHNIQUE: Real-time focused scanning was performed of the abdomen, with image documentation. COMPARISON: None. FINDINGS: Mild diffuse heterogeneous increased echogenicity of the liver commonly hepatic steatosis although given history, hemochromatosis or other intrinsic hepatic disease could be considered. Liver measures approximately 13.5 cm in CC dimension of the right lobe within normal limits in size and contour. Several echogenic nonshadowing suspected polyps measuring up to 4 mm are noted within the gallbladder. No gross ultrasound evidence of echogenic shadowing gallstone. No gallbladder wall thickening or pericholecystic fluid to suggest cholecystitis. Common bile duct measures 4 mm within normal limits. Pancreatic head and body within normal limits. Pancreatic tail not well visualized due to overlying bowel gas. IMPRESSION: Mild diffuse heterogeneous increased echogenicity of the liver commonly hepatic steatosis or other process as discussed above. Several suspected gallbladder polyps. No gross ultrasound evidence of gallstone. Common bile duct measures 4 mm within normal limits. Dictated by: Krzysztof Howard M.D. on 05/20/2024 at 12:03 Approved by: Krzysztof Howard M.D. on 05/20/2024 at 12:07
== END ==
LOC: US 09:29
PROVIDERS: Family Provider Family Medicine; PCP Family Medicine; Referring Provider Family Medicine; Visit Provider Family Medicine
DX: R60.0 Localized edema (principal); R79.89 Other specified abnormal findings of blood chemistry
CPT/HCPCS: 76705

== ENCOUNTER → 2024-09-28 12:38 | Outpatient (CLI) | payer MEDICARE, SELFPAY | PROVIDERS: Family Provider Family Medicine; PCP Family Medicine; Visit Provider Physician Assistant Medical | DX: R82.998 Other abnormal findings in urine (principal) | CPT/HCPCS: 87086 ==

== ENCOUNTER → 2024-10-22 11:52 | Outpatient (CLI) | payer MEDICARE, SELFPAY ==
[2024-10-22 19:11] LABS: C-Reactive Protein Quant 0.8 mg/dL (<1.0)
[2024-10-22 19:31] LABS: Add Manual Diff / Slide Review NO; Basophils Absolute Auto 100 /uL (0-100); Basophils Percent Auto 1.2 % (0-2); Eosinophils Absolute Auto 200 /uL (0-450); Eosinophils Percent Auto 2.9 % (2-4); Hematocrit 42.3 % (36-46); Hemoglobin 14.3 g/dL (12.0-16.0); Lymphocytes Absolute Auto 1100 /uL (1100-4500); Lymphocytes Percent Auto 18.4 % (25-40); Mean Corpuscular HGB Conc 33.9 % (30-36); Mean Corpuscular Volume 91.6 fL (80-100); Monocytes Absolute Auto 600 /uL (0-900); Monocytes Percent Auto 10.8 % (3-14); Neutrophils Absolute Auto 3900 /uL (1500-7000); Neutrophils Percent Auto 66.7 % (50-75); Platelet Count 207 X10^3/uL (150-400); Red Blood Cell Count 4.62 X10^6/uL (4.0-5.2); White Blood Cell Count 5.8 X10^3/uL (4.5-11.0)
[2024-10-22 20:00] LABS: Erythrocyte Sedimentation Rate 7 MM/HR (0-20)
== END ==
PROVIDERS: Family Provider Family Medicine; PCP Family Medicine; Visit Provider Physician Assistant Medical
DX: M25.50 Pain in unspecified joint (principal); M25.569 Pain in unspecified knee; M25.559 Pain in unspecified hip; M54.9 Dorsalgia, unspecified
CPT/HCPCS: 85025; 85651; 86038; 86140

== ENCOUNTER → 2024-11-16 10:07 | Outpatient (CLI) | payer MEDICARE, SELFPAY | PROVIDERS: Family Provider Family Medicine; PCP Family Medicine; Visit Provider Physician Assistant Medical | DX: L02.212 Cutaneous abscess of back [any part, except buttock and flank] (principal) | CPT/HCPCS: 87070; 87075; 87205 ==

== ENCOUNTER → 2025-06-20 07:59 | Outpatient (CLI) | payer MEDICARE, SELFPAY ==
[2025-06-20 18:46] LABS: Add Manual Diff / Slide Review NO; Hematocrit 43.5 % (36-46); Hemoglobin 14.9 g/dL (12.0-16.0); Lymphocytes Absolute Auto 1700 /uL (1100-4500); Mean Corpuscular HGB Conc 34.2 % (30-36); Mean Corpuscular Hemoglobin 30.8 PG (26-34); Mean Corpuscular Volume 90.1 fL (80-100); Platelet Count 221 X10^3/uL (150-400)
[2025-06-20 19:00] LABS: Hemoglobin A1C% w Est Avg Glu 5.5 % (4.0-6.0)
[2025-06-20 19:03] LABS: Alanine Aminotransferase 16 IU/L (<35); Albumin 4.0 g/dL (3.5-5.0); Albumin Globulin Ratio 1.3 (1.0-2.8); Alkaline Phosphatase 88 U/L (38-126); Blood Urea Nitrogen 17 mg/dL (7-17); Calcium 10.3 mg/dL (8.4-10.2); Carbon Dioxide 31 mmol/L (22-32); Chloride 104 mmol/L (98-107); Estimated Glomerular Filt Rate > 60 mL/min (>60); Globulin 3.2 g/dL (1.7-4.1); Glucose 90 mg/dL (70-99); HEMOLYSIS < 15 (0-50); Potassium 4.6 mmol/L (3.4-5.1); Sodium 138 mmol/L (137-145); Total Protein 7.2 g/dL (6.3-8.2)
[2025-06-20 21:06] LABS: HIV 1 & 2 Ab/Ag 4th Gen Combo NEGATIVE (NEGATIVE); Hep C Virus Ab w/Reflex Quant NEGATIVE s/c (NEGATIVE)
== END ==
PROVIDERS: Family Provider Family Medicine; PCP Physician Assistant Medical; Visit Provider Physician Assistant Medical
DX: Z00.00 Encounter for general adult medical examination without abnormal findings (principal); Z13.1 Encounter for screening for diabetes mellitus; G62.9 Polyneuropathy, unspecified
CPT/HCPCS: 80053; 83036; 85025; 86803; 87389

== ENCOUNTER → 2025-07-15 11:36 | Outpatient (CLI) | payer OTHER, SELFPAY ==
--- NOTE | 2025-07-15 11:37 | DI.RAD.S_ITS ---
PROCEDURE: XR DEXA AXIAL SKELETON
--- NOTE | 2025-07-15 11:37 | DI.MRI.S_ITS ---
PROCEDURE: MR SHOULDER RT WO CON
== END ==
LOC: MRI 11:37
PROVIDERS: Family Provider Family Medicine; PCP Physician Assistant Medical; Referring Provider Physician Assistant Medical; Visit Provider Physician Assistant Medical
DX: M75.111 Incomplete rotator cuff tear or rupture of right shoulder, not specified as traumatic (principal); M25.511 Pain in right shoulder; M25.411 Effusion, right shoulder; Z78.0 Asymptomatic menopausal state
CPT/HCPCS: 73221; 77080